=== PATIENT | male | born 1990 | race Caucasian/White ===

== ENCOUNTER 2017-07-11 20:55 | Emergency (ER) | payer BC ==
[~2017-07-11] VITALS: Ht 185.4 cm; Wt 90.9 kg
[~2017-07-11 20:55] MED LIST: LAMOTRIGINE200 MG PO
[2017-07-11 21:02] VITALS: BP 118/89
== END 2017-07-11 21:43 | disposition home or self-care (01) ==
LOC: ED 20:55
DX: T15.01XA Foreign body in cornea, right eye, initial encounter (principal)

== ENCOUNTER → 2020-11-26 | Outpatient (CLI) | payer OTHER | LOC: LAB 15:34 | DX: R30.9 Painful micturition, unspecified (principal) ==

== ENCOUNTER → 2021-06-13 | Outpatient (CLI) | payer OTHER ==
[2021-06-13 13:48] LABS: BASO # 0.04 K/mm3 (0.02-0.10); EOS % 2.3 % (0.0-4.0); HEMATOCRIT 49.9 % (42.0-52.0); HEMOGLOBIN 17.6 g/dL (13.5-18.0); MEAN CELL VOLUME 91 fl (78-100); MEAN CORPUSCULAR HEMOGLOBIN 32 pg (27-31); MEAN CORPUSCULAR HGB CONC 35 g/dL (33-37); MEAN PLATELET VOLUME 10.5 fl (7.4-10.4); MONO # 0.58 K/mm3 (0.20-0.80); NEU # 5.03 K/mm3 (1.40-6.50); PLATELET COUNT 269 K/mm3 (130-400); RED CELL DISTRIBUTION WIDTH 11.6 % (11.5-14.5); WHITE BLOOD COUNT 8.6 K/mm3 (4.8-10.8)
[2021-06-13 14:01] LABS: ALBUMIN 5.1 g/dL (3.5-5.0); POTASSIUM 4.1 mmol/L (3.5-5.1)
[2021-06-13 14:02] LABS: CALCIUM 10.1 mg/dL (8.3-10.5)
[2021-06-13 14:03] LABS: TOTAL PROTEIN 8.3 g/dL (6.4-8.3)
[2021-06-13 14:05] LABS: TOTAL BILIRUBIN 0.8 mg/dL (0.2-1.2)
== END ==
LOC: LAB 13:31 → CARDREHAB 13:31
PROVIDERS: Internal Medicine
DX: Z00.00 Encounter for general adult medical examination without abnormal findings (principal); G47.19 Other hypersomnia
CPT/HCPCS: G0399

== ENCOUNTER → 2021-06-23 | Day surgery (SDC) | payer OTHER | END | disposition home or self-care (01) | LOC: MSO 07:13 | DX: K22.2 Esophageal obstruction (principal); K21.00 Gastro-esophageal reflux disease with esophagitis, without bleeding; G47.00 Insomnia, unspecified; Z98.52 Vasectomy status; Z90.89 Acquired absence of other organs | CPT/HCPCS: 00731; C1769; J2704; J7120 ==

== ENCOUNTER → 2021-07-06 | Outpatient (CLI) | payer OTHER ==
[2021-07-06 10:37] LABS: URINE APPEARANCE CLEAR; URINE BILIRUBIN NEGATIVE (NEGATIVE); URINE BLOOD NEGATIVE (NEGATIVE); URINE COLOR YELLOW; URINE GLUCOSE NEGATIVE (NEGATIVE); URINE KETONE NEGATIVE (NEGATIVE); URINE LEUKOCYTE ESTERASE NEGATIVE (NEGATIVE); URINE NITRATE NEGATIVE (NEGATIVE); URINE PROTEIN(semi-quant) TRACE (NEGATIVE); URINE UROBILINOGEN NORMAL (NORMAL)
== END ==
LOC: LAB 08:10
PROVIDERS: Nurse Practitioner Family
DX: R30.9 Painful micturition, unspecified (principal)

== ENCOUNTER → 2022-09-01 | Outpatient (CLI) | payer OTHER ==
[2022-09-01 14:55] LABS: BASO # 0.02 K/mm3 (0.02-0.10); EOS # 0.15 K/mm3 (0.04-0.40); HEMOGLOBIN 15.7 g/dL (13.5-18.0); LYMPH# 2.87 K/mm3 (1.50-4.00); MEAN CELL VOLUME 93 fl (78-100); MEAN CORPUSCULAR HEMOGLOBIN 32 pg (27-31); MEAN CORPUSCULAR HGB CONC 35 g/dL (33-37); MEAN PLATELET VOLUME 10.9 fl (7.4-10.4); MONO # 0.57 K/mm3 (0.20-0.80); NEU # 4.06 K/mm3 (1.40-6.50); PLATELET COUNT 221 K/mm3 (130-400); RED BLOOD COUNT 4.85 M/mm3 (4.20-5.60); RED CELL DISTRIBUTION WIDTH 11.8 % (11.5-14.5); WHITE BLOOD COUNT 7.7 K/mm3 (4.8-10.8)
[2022-09-01 14:59] LABS: ALBUMIN 4.6 g/dL (3.5-5.0); POTASSIUM 3.8 mmol/L (3.5-5.1)
[2022-09-01 15:00] LABS: CALCIUM 9.8 mg/dL (8.3-10.5)
[2022-09-01 15:01] LABS: TOTAL PROTEIN 7.3 g/dL (6.4-8.3)
[2022-09-01 15:03] LABS: TOTAL BILIRUBIN 0.7 mg/dL (0.2-1.2)
== END ==
LOC: LAB 14:32
PROVIDERS: Internal Medicine
DX: F32.1 Major depressive disorder, single episode, moderate (principal); R05.9 Cough, unspecified

== ENCOUNTER → 2023-09-03 | Outpatient (CLI) | payer OTHER | LOC: LAB 17:22 | PROVIDERS: Internal Medicine | DX: Z00.00 Encounter for general adult medical examination without abnormal findings (principal) ==

== ENCOUNTER → 2023-09-10 | Outpatient (CLI) | payer OTHER ==
[2023-09-10 19:47] LABS: FOLLICLE STIMULATING HORMONE 4.4 mIU/mL (1.0-12.0); LUTENIZING HORMONE 2.8 mIU/mL (0.6-12.1); PROLACTIN AMS 17.9 ng/mL (3.5-19.4)
== END ==
LOC: LAB 07:16
PROVIDERS: Internal Medicine
DX: R89.1 Abnormal level of hormones in specimens from other organs, systems and tissues (principal)

== ENCOUNTER → 2023-09-24 | Outpatient (CLI) | payer OTHER ==
[2023-09-24 18:35] LABS: CORTISOL, AM (0800) 10 ug/dL (3-20); TESTOSTERONE 475 ng/dL (240-871)
[2023-09-26 17:18] LABS: ADRENOCORTICOTROPIC HORMONE 25 pg/mL (5-27)
== END ==
LOC: LAB 07:09
PROVIDERS: Internal Medicine
DX: R89.1 Abnormal level of hormones in specimens from other organs, systems and tissues (principal)